=== PATIENT | male | born 1970 | race Caucasian/White ===

== ENCOUNTER 2017-06-21 11:02 | Emergency (ER) | payer BC ==
[~2017-06-21] VITALS: Ht 160 cm; Wt 80.0 kg
[2017-06-21 11:08] VITALS: Ht 160 cm; Wt 80.0 kg
[2017-06-21] MEDS ORDERED: ASPIRIN 325 MG TAB PO STA (13:35)
--- NOTE | 2017-06-21 13:52 | RADRPT ---
PROCEDURE: Chest Radiograph. CLINICAL INDICATION: Chest pain TECHNIQUE: Single frontal chest radiograph. COMPARISON: None available FINDINGS: The cardiomediastinal silhouette is within normal limits. No infiltrate or effusion is seen. Th e bones are intact. IMPRESSION: 1. Unremarkable chest radiograph. RPTAT: KK .Yovani Cavanaugh MD, MD Date Time Electronically viewed and signed by .Yovani Cavanaugh MD, on 06/21/2017 13:52 .B/
[2017-06-21] MEDS ORDERED: ATOR20TA38 PO (14:11)
--- NOTE | 2017-06-21 14:23 | ERA ---
ER Documentation Chief Complaint Date/Time DATE: 06/21/17 TIME: 14:11 Chief Complaint chest pressure since last night, intermittent, continuoes for last hr HPI This is a 46-year-old male with a past medical history of hyperlipidemia who is presenting with intermittent, waxing waning nonradiating left-sided chest discomfort and tightness, worse with certain movements. It seems to come and go on its own. It is not associated with exertion. The patient did go to work this morning and was lifting heavy things without issue. However, it started to come on shortly thereafter while at rest. The patient reports having a mild cough with congestion last night, and thought that may be the tightness was simply from getting a cold. However, the congestion improved, but the discomfort recurred this morning. The patient has not taken anything for the discomfort. Patient denies any fever or chills. He denies a headache or vision changes. He denies any current chest pain. He denies any shortness of breath. He has no abdominal pain. He has had no changes to bowel movements urination. He has had no focal deficits. He has had no weakness or numbness or tingling to the face or extremities. ROS All systems reviewed and are negative except as per history of present illness. Medications Home Meds Reported Medications Atorvastatin Calcium* (Atorvastatin Calcium*) 20 Mg Tablet, 20 MG PO QHS, #30 TAB 06/21/17 Allergies Allergies: Coded Allergies: No Known Allergy (Unverified , 06/21/17) FmHx Family History: coronary disease (SC in Father at age 61yo), diabetes (Sister) Physical Exam Vitals Vital Signs Date Time Temp Pulse Resp B/P Pulse Ox O2 Delivery O2 Flow Rate FiO2 06/21/17 20:30 98.1 72 18 117/77 98 Room Air 06/21/17 18:30 98.1 64 18 117/73 97 Room Air 06/21/17 11:08 98.1 87 18 146/87 99 Physical Exam Const: NAD, Well developed, Well Nourished. Head: Atraumatic Eyes: Normal Conjunctiva ENT: Normal External Ears, Nose and Mouth. Neck: Full range of motion..~ No meningismus. Resp: Clear to auscultation bilaterally Cardio: Regular rate and rhythm, no murmurs Abd: Soft, non tender, non distended. Normal bowel sounds Skin: No petechiae or rashes Back: No midline or flank tenderness Ext: No cyanosis, or edema Neur: Awake and alert Psych: Normal Mood and Affect Result Diagram: 06/21/17 1435 06/21/17 1435 Results 24 hrs Laboratory Tests Test 06/21/17 14:35 06/21/17 19:05 White Blood Count 7.510^3/ul Red Blood Count 4.5110^6/ul Hemoglobin 13.8g/dl Hematocrit 41.4% Mean Corpuscular Volume 91.8fl Mean Corpuscular Hemoglobin 30.6pg Mean Corpuscular Hemoglobin Concent 33.3g/dl Red Cell Distribution Width 12.7% Platelet Count 64920^3/UL Mean Platelet Volume 8.5fl Neutrophils % 62.5% Lymphocytes % 25.1% Monocytes % 10.8% Eosinophils % 0.5% Basophils % 0.8% Nucleated Red Blood Cells % 0.0/100WBC Neutrophils # (Manual) 4.710^3/ul Lymphocytes # 1.910^3/ul Monocytes # 0.810^3/ul Eosinophils # 0.010^3/ul Basophils # 0.110^3/ul Nucleated Red Blood Cells # 0.010^3/ul Sodium Level 142mmol/L Potassium Level 4.0mmol/L Chloride Level 105mmol/L Carbon Dioxide Level 27mmol/L Anion Gap 14 Blood Urea Nitrogen 11mg/dl Creatinine 0.79mg/dl Glucose Level 86mg/dl Calcium Level 9.3mg/dl Troponin I < 0.012ng/ml < 0.012ng/ml Creatine Kinase 113IU/L Creatine Kinase Index 0.7 Creatinine Kinase MB (Mass) 0.78ng/ml Current Medications Medications (Trade) Dose Ordered Sig/Marshall Route PRN Reason Start Time Stop Time Status Last Admin Dose Admin Aspirin (Aspirin) 325 mg ONCE STAT PO 06/21/17 13:35 06/21/17 13:36 DC 06/21/17 14:08 Procedures/MDM The patient's presentation warrants a cardiac workup. The patient's blood work was obtained and reviewed. The patient's CBC and BMP were unremarkable. The patient's initial troponin was negative. They repeat troponin was completed 4-5 hours later that was likewise negative. EKG Read by me: Rate/Rhythm: Regular rate and rhythm at a rate of 74 Intervals: Normal [place]: Normal No repolarization abnormalities Impression: No evidence of ischemia or arrhythmia The patient's chest x-ray revealed the following is read by the radiologist: CXR FINDINGS: The cardiomediastinal silhouette is within normal limits. No infiltrate or effusion is seen. The bones are intact. IMPRESSION: Unremarkable chest radiograph. Electronically viewed and signed by .Yovani Cavanaugh MD, MD on 2016 13:52 The patient was given aspirin in the emergency department. His chest pain continued to wax and wane, but prior to discharge, it had improved. I would give the patient a heart score of 1 for risk factors. The patient is only 46 years old. He has a normal EKG and 2 negative troponins. At this time, I have a low suspicion for a cardiac etiology. The risk of a heart attack within the next 30 days is low, and I discussed this with the patient. The patient will follow up with his primary care doctor in 1-3 days for reevaluation. The patient may require a stress test as an outpatient. He was given precautions with which to return to the emergency department. He will call his doctor in the morning to schedule a follow-up appointment. Departure Diagnosis: Primary Impression: Chest pain Qualified Code: R07.9 - Chest pain, unspecified type Condition: LANG Thompson MD Jun 21, 2017 14:23
[2017-06-21 14:58] LABS: BASOPHIL # 0.1 10^3/ul (0.0-0.1); BASOPHILS % 0.8 % (0.0-2.0); EOSINOPHILS % 0.5 % (0.0-7.0); HEMATOCRIT 41.4 % (42.0-52.0); HEMOGLOBIN 13.8 g/dl (14.0-18.0); LYMPHOCYTES # 1.9 10^3/ul (0.8-2.9); LYMPHOCYTES % 25.1 % (15.0-51.0); MEAN CORPUSCULAR HEMOGLOBIN 30.6 pg (29.0-33.0); MEAN CORPUSCULAR HGB CONC 33.3 g/dl (32.0-37.0); MEAN CORPUSCULAR VOLUME 91.8 fl (82.0-101.0); MEAN PLATELET VOLUME 8.5 fl (7.4-10.4); MONOCYTE # 0.8 10^3/ul (0.3-0.9); MONOCYTES % 10.8 % (0.0-11.0); NEUTROPHILS % 62.5 % (39.0-77.0); PLATELET COUNT 345 10^3/UL (140-415); RED BLOOD COUNT 4.51 10^6/ul (4.70-6.10); RED CELL DISTRIBUTION WIDTH 12.7 % (11.5-14.5); WHITE BLOOD COUNT 7.5 10^3/ul (4.8-10.8)
[2017-06-21 15:46] LABS: ANION GAP 14 (8-16); BLOOD UREA NITROGEN 11 mg/dl (7-20); CALCIUM 9.3 mg/dl (8.4-10.2); CARBON DIOXIDE 27 mmol/L (21-31); CHLORIDE 105 mmol/L (97-110); CREATININE 0.79 mg/dl (0.61-1.24); GLUCOSE 86 mg/dl (70-220); SODIUM 142 mmol/L (135-144)
[2017-06-21 15:55] LABS: TROPONIN-I < 0.012 ng/ml (0.00-0.12)
[2017-06-21 19:54] LABS: CREATINE KINASE 113 IU/L (23-200)
[2017-06-21 20:16] LABS: CK-MB 0.78 ng/ml (0.0-2.4); TROPONIN-I < 0.012 ng/ml (0.00-0.12)
[2017-06-21 20:30] VITALS: BP 117/77; PULSE 72; RESP 18; TEMP 98.1
== END 2017-06-21 20:33 | disposition home or self-care (01) ==
LOC: E/R 11:02
DX: R07.89 Other chest pain (principal)
CPT/HCPCS: 36415; 71010; 80048; 82550; 82553; 84484; 85025; 93005